=== PATIENT | male | born 1970 | race Asian ===

== ENCOUNTER 2018-07-10 14:38 | Observation (INO) | payer BC ==
[~2018-07-10] VITALS: Ht 165.1 cm; Wt 70.2 kg
[~2018-07-10 14:38] MED LIST: ALBU8.5H8 IH; ALPR0.5T PO
[2018-07-10 14:41] VITALS: Ht 165.1 cm; Wt 70.2 kg
[2018-07-10] MEDS ORDERED: KETOROLAC 15 MG INJ IV STA (15:04)
[2018-07-10] MEDS ORDERED: LIDOCAINE/MYLANTA 40 ML BTL PO STA (15:04)
[2018-07-10] MEDS ORDERED: SOD CHLORIDE 0.9% 500 ML IV STA (15:04)
[2018-07-10] MEDS ORDERED: ONDANSETRON 4 MG INJ IV STA (15:04)
[2018-07-10] MEDS ORDERED: BELLADONNA/PHENOBARBITAL TAB PO STA (15:04)
--- NOTE | 2018-07-10 15:14 | ERD ---
ER Documentation Chief Complaint Chief Complaint epigastric pain radiating to back, had stent placed 6 months ago HPI 48-year-old man complains of left chest discomfort intermittent beginning this morning. He states the discomfort lasts for a few minutes and is similar to previous episode he had in the summer at which time he was diagnosed with a myocardial infarction and had to be rushed to the cardiac [employer]. Patient did receive a drug-eluting RCA stent. He did use a baby dose of aspirin this morning and also complains of mild dizziness, mild shortness of breath, some nausea. Patient also has epigastric burning and bloating with belching and states those symptoms are occurring concurrently and feel like his indigest ion/gastritis. He denies fevers or chills, no cough, no calf or leg swelling, no hematemesis, no blood per rectum or melena. ROS All systems reviewed and are negative except as per history of present illness. Medications Home Meds Reported Medications Famotidine* (Famotidine*) 10 Mg Tablet, 10 MG PO BID, #60 TAB 07/10/18 Aspirin* (Aspirin* EC) 81 Mg Tablet.dr, 81 MG PO DAILY, TAB 07/10/18 Clopidogrel Bisulfate* (Clopidogrel Bisulfate*) 75 Mg Tablet, 75 MG PO DAILY, #30 TAB 07/10/18 Carvedilol* (Carvedilol*) 3.125 Mg Tablet, 3.125 MG PO BID, #60 TAB 07/10/18 Atorvastatin* (Atorvastatin*) 80 Mg Tablet, 80 MG PO QHS, #30 TAB 07/10/18 Lisinopril* (Lisinopril*) 5 Mg Tablet, 5 MG PO DAILY, #30 TAB 07/10/18 Discontinued Reported Medications Alprazolam* (Xanax*) 0.5 Mg Tab, 0.5 MG PO PRN 12/11/11 Albuterol Sulfate* (Proair HFA*) 8.5 Gm Hfa.aer.ad, 8.5 GM IH PRN 12/11/11 Allergies Allergies: Coded Allergies: shrimp (Verified Allergy, Severe, 07/10/18) Uncoded Allergies: PENICILLIN (Allergy, Unknown, 07/10/18) PMhx/Soc Hypertension, hypercholesterolemia, CAD, status post ME and stent placement, gastritis History of Surgery: No Anesthesia Reaction: No Hx Neurological Disorder: No Hx Respiratory Disorders: Yes (ASTHMA) Hx Cardiac Disorders: No Hx Psychiatric Problems: Yes (ANXIETY) Hx Miscellaneous Medical Probl: No Hx Alcohol Use: No Hx Substance Use: No Hx Tobacco Use: No FmHx Family History: No diabetes Physical Exam Vitals Vital Signs Date Temp Pulse Resp B/P (MAP) Pulse Ox O2 O2 Flow FiO2 Time Delivery Rate 07/10/18 61 18 122/78 98 Room Air 17:21 (93) 07/10/18 66 18 140/80 100 Room Air 15:15 (100) 07/10/18 98.1 82 18 144/87 95 14:41 (106) Physical Exam GENERAL: Well-developed, well-nourished, well-hydrated, in no apparent distress, looks nontoxic in appearance HEENT: Moist mucous membranes, pink conjunctiva, no cervical spine tenderness or step-off deformities, no goiter, no jaundice or icterus, extraocular movements intact without pain. No submandibular induration, and no pharyngeal erythema NEURO: Alert and oriented 3, cranial nerves II through XII intact bilaterally, pupils equal round reactive to light, no focal deficits or facial asymmetry, sensation intact distally Strength 5/5 in upper and lower extremities bilaterally CARDIAC: Regular rate and rhythm, no murmurs rubs or gallops LUNGS: Clear bilaterally no wheezing crackles or stridor ABDOMEN: Soft nontender, no guarding, no rigidity, no rebound, no psoas sign no obturator sign. Normoactive bowel sounds SKIN: Warm and dry to touch, no abrasions, contusions, or hematomas, no lacerat ions, no ecchymosis, no target lesions, and without ulcers EXTREMITIES: No clubbing cyanosis or edema, calves are bilaterally symmetrical, no Homans sign, no popliteal cord sign. Distal pulses equal and bilateral PSYCH: Normal affect without agitation or irritability Result Diagram: 07/10/18 1520 07/10/18 1520 Results 24 hrs Laboratory Tests Test 07/10/18 15:20 White Blood Count 5.9 10^3/ul Red Blood Count 4.92 10^6/ul Hemoglobin 14.5 g/dl Hematocrit 43.0 % Mean Corpuscular Volume 87.4 fl Mean Corpuscular Hemoglobin 29.5 pg Mean Corpuscular Hemoglobin Concent 33.7 g/dl Red Cell Distribution Width 12.6 % Platelet Count 213 10^3/UL Mean Platelet Volume 8.8 fl Immature Granulocytes % 0.300 % Neutrophils % 65.3 % Lymphocytes % 23.9 % Monocytes % 7.6 % Eosinophils % 2.4 % Basophils % 0.5 % Nucleated Red Blood Cells % 0.0 /100WBC Immature Granulocytes # 0.020 10^3/ul Neutrophils # 3.8 10^3/ul Lymphocytes # 1.4 10^3/ul Monocytes # 0.5 10^3/ul Eosinophils # 0.1 10^3/ul Basophils # 0.0 10^3/ul Nucleated Red Blood Cells # 0.0 10^3/ul Prothrombin Time 11.8 Sec Prothrombin Time Ratio 0.9 INR International Normalized Ratio 0.86 Activated Partial Thromboplast Time 30.0 Sec Sodium Level 137 mmol/L Potassium Level 3.8 mmol/L Chloride Level 101 mmol/L Carbon Dioxide Level 27 mmol/L Anion Gap 9 Blood Urea Nitrogen 19 mg/dl Creatinine 1.01 mg/dl Est Glomerular Filtrat Rate mL/min > 60 mL/min Glucose Level 101 mg/dl Calcium Level 10.0 mg/dl Total Bilirubin 0.3 mg/dl Direct Bilirubin 0.00 mg/dl Indirect Bilirubin 0.3 mg/dl Aspartate Amino Transf (AST/SGOT) 43 IU/L Alanine Aminotransferase (ALT/SGPT) 60 IU/L Alkaline Phosphatase 57 IU/L Creatine Kinase 152 IU/L Creatine Kinase Index 0.7 Creatinine Kinase MB (Mass) 1.07 ng/ml Troponin I < 0.012 ng/ml Total Protein 8.1 g/dl Albumin 4.8 g/dl Globulin 3.30 g/dl Albumin/Globulin Ratio 1.45 Lipase 73 U/L Current Medications Medications Dose Sig/Ishaan Start Time Status Last (Trade) Ordered Route PRN Stop Time Admin Dose Reason Admin Aspirin 324 mg ONCE ONCE 07/10/18 DC 07/10/18 (Aspirin) PO 15:30 15:31 07/10/18 15:31 Sodium 500 ml @ Q1H STAT 07/10/18 DC 07/10/18 Chloride 500 mls/hr IV 15:04 15:32 07/10/18 16:03 Ondansetron 4 mg ONCE STAT 07/10/18 DC 07/10/18 HCl (Zofran IV 15:04 15:31 Inj) 07/10/18 15:06 40 ml ONCE STAT 07/10/18 DC 07/10/18 Miscellaneous PO 15:04 15:31 Medication 07/10/18 15:06 (Gi Cocktail (2)) Belladonna/ 2 tab ONCE STAT 07/10/18 DC 07/10/18 Phenobarbital PO 15:04 15:31 () 07/10/18 15:06 Ketorolac 15 mg ONCE STAT 07/10/18 DC 07/10/18 Tromethamine IV 15:04 15:31 (Toradol) 07/10/18 15:06 IV Flush 3 ml PER 07/10/18 (NS 3 ml) PROTOCOL IV 17:30 Ondansetron 4 mg Q6H PRN 07/10/18 HCl (Zofran IV NAUSEA 17:30 Inj) AND/OR VOMITING 1 tab Q5M PRN 07/10/18 Nitroglycerin SL CHEST 17:30 PAIN (Nitroglyceri n (Sl Tab) 0.4 Mg) 650 mg Q6H PRN 07/10/18 Acetaminophen PO PAIN 17:30 (Tylenol LEVEL 1-3 OR Tab) FEVER Morphine 2 mg Q4H PRN 07/10/18 Sulfate IV PAIN 17:30 (morphine) LEVEL 7-10 Docusate 100 mg Q12H PRN 07/10/18 Sodium PO 17:30 (Colace) CONSTIPATION Magnesium 30 ml DAILY PRN 07/10/18 Hydroxide PO 17:30 (Milk Of Mag) CONSTIPATION Bisacodyl 10 mg DAILY PRN 07/10/18 (Dulcolax [place] 17:30 Supp) CONSTIPATION Famotidine 20 mg Q12 PO 07/10/18 (Pepcid) 21:00 Aspirin 81 mg DAILY PO 07/11/18 (Halfprin) 09:00 80 mg QHS PO 07/10/18 Atorvastatin 21:00 Calcium (Lipitor) Carvedilol 3.125 mg BID PO 07/10/18 (Coreg) 21:00 Clopidogrel 75 mg DAILY PO 07/11/18 Bisulfate 09:00 (plaVIX) Lisinopril 5 mg DAILY PO 07/11/18 (Zestril) 09:00 Procedures/[facility] IV line was established patient was placed on cardiac cath technologist rhythm strip revealed a sinus rhythm at about 70 bpm with upright P and T waves. Patient was afebrile EKG performed, read by me revealed a normal sinus rhythm at 60 bpm, normal axis, narrow QRS complex, no concerning ST elevations or depressions noted Chest X-ray 1V Interpreted by me: Soft Tissue: No acute abnormalities Bones: No acute abnormalities Mediastinum/Cardiac Silhouette/Lungs: No acute abnormalities I administered 500 cc normal saline IV, Toradol 15 mg IV x1, GI cocktail, Zofran 4 mg p.o. and aspirin 324 mg p.o. for cardioprotective measures. CBC and electrolytes were normal, liver function tests were normal, troponin was negative Patient's chest pain has improved although given his concerning past medical history and his symptoms today he will be admitted to telemetry for continued medical management and cardiology consultation Departure Diagnosis: Primary Impression: Epigastric pain Additional Impression: Chest pain Chest pain type: unspecified Qualified Codes: R07.9 - Chest pain, unspecified Condition: KESHA Rider MD Jul 10, 2018 15:14
[2018-07-10] MEDS ORDERED: LISI-313 PO (15:22)
[2018-07-10] MEDS ORDERED: ATOR-2 PO (15:24)
[2018-07-10] MEDS ORDERED: CLOP75TA19 PO (15:25)
[2018-07-10] MEDS ORDERED: ASPI-817 PO (15:25)
[2018-07-10] MEDS ORDERED: CARV3.1260 PO (15:25)
[2018-07-10] MEDS ORDERED: FAMO10TA84 PO (15:26)
[2018-07-10] MEDS ORDERED: ASPIRIN 81 MG TAB PO ONE (15:30)
[2018-07-10] MEDS ORDERED: morphine 2 MG INJ IV PRN (17:30)
[2018-07-10] MEDS ORDERED: ONDANSETRON 4 MG INJ IV PRN (17:30)
[2018-07-10] MEDS ORDERED: NACL 0.9% 3 ML SYG IV SCH (17:30)
[2018-07-10] MEDS ORDERED: BISACODYL 10 MG SUPP PR PRN (17:30)
[2018-07-10] MEDS ORDERED: DOCUSATE SODIUM 100 MG CAP PO PRN (17:30)
[2018-07-10] MEDS ORDERED: NITROGLYCERIN (SL) 0.4 MG TAB SL PRN (17:30)
[2018-07-10] MEDS ORDERED: MAGNESIUM HYDROXIDE 30ML CUP PO PRN (17:30)
[2018-07-10] MEDS ORDERED: ACETAMINOPHEN 325 MG TAB PO PRN (17:30)
--- NOTE | 2018-07-10 17:48 | HP ---
Date/Time of Note Date/Time of Note DATE: 07/10/18 TIME: 17:33 Assessment/Plan VTE Prophylaxis SCD applied (from Nsg): Yes Pharmacological prophylaxis: NA/contraindicated Pharm contraindication: low risk/ambulating Lines/Catheters IV Catheter Type (from Nrsg): Saline Lock Assessment/Plan Assessment/Plan 48-year-old male with: 1. Chest pain, also epigastric pain, seems to be radiating to the left side of his back across from his left chest, patient does have a history of coronary artery disease with recent episode of NSTEMI and RCA stenting. He is being admitted to telemetry on observation for rule out acute coronary syndrome, he will be placed on n.p.o. after midnight with plans for a Lexiscan in a.m. if his enzymes remain negative. Continue his current outpatient medication including antiplatelets, beta blockers, JOE inhibitors and statins. Cardiology consult with Dr. Lay 2. Epigastric burning pain with occasional stabbing pain, but this could be consistent with GERD versus PUD, but patient does have a history of GERD, will continue with Pepcid which will be dosed twice daily. Abdominal ultrasound pending. Lipase within normal. 3. Coronary artery disease: Continue home medications 4. Hypertension: Continue home regimen 5. Hyperlipidemia: Continue current statins, check fasting panel in a.m. 6. GERD: Continue H2 blockers. 7. ? Diabetes mellitus, the patient reports he has borderline diabetes mellitus and diet controlled currently. Check A1c in a.m. Prophylaxis: SCDs for DVT prophylaxis, Pepcid for GI prophylaxis. Disposition: Admit to telemetry, observation, rule out ACS. Result Diagram: 07/10/18 1520 07/10/18 1520 Results 24hrs Laboratory Tests Test 07/10/18 15:20 White Blood Count 5.9 Red Blood Count 4.92 Hemoglobin 14.5 Hematocrit 43.0 Mean Corpuscular Volume 87.4 Mean Corpuscular Hemoglobin 29.5 Mean Corpuscular Hemoglobin Concent 33.7 Red Cell Distribution Width 12.6 Platelet Count 213 Mean Platelet Volume 8.8 Immature Granulocytes % 0.300 Neutrophils % 65.3 Lymphocytes % 23.9 Monocytes % 7.6 Eosinophils % 2.4 Basophils % 0.5 Nucleated Red Blood Cells % 0.0 Immature Granulocytes # 0.020 Neutrophils # 3.8 Lymphocytes # 1.4 Monocytes # 0.5 Eosinophils # 0.1 Basophils # 0.0 Nucleated Red Blood Cells # 0.0 Prothrombin Time 11.8 L Prothrombin Time Ratio 0.9 INR International Normalized Ratio 0.86 Activated Partial Thromboplast Time 30.0 Sodium Level 137 Potassium Level 3.8 Chloride Level 101 Carbon Dioxide Level 27 Anion Gap 9 Blood Urea Nitrogen 19 Creatinine 1.01 Est Glomerular Filtrat Rate mL/min > 60 Glucose Level 101 Calcium Level 10.0 Total Bilirubin 0.3 Direct Bilirubin 0.00 Indirect Bilirubin 0.3 Aspartate Amino Transf (AST/SGOT) 43 Alanine Aminotransferase (ALT/SGPT) 60 Alkaline Phosphatase 57 Creatine Kinase 152 Creatine Kinase Index 0.7 Creatinine Kinase MB (Mass) 1.07 Troponin I < 0.012 Total Protein 8.1 Albumin 4.8 Globulin 3.30 H Albumin/Globulin Ratio 1.45 Lipase 73 HPI/ROS Admit Date/Time Admit Date/Time Hx of Present Illness Chief complaint: Epigastric pain, chest pain History of presenting illness: This is a 48-year-old male with coronary artery disease, status post RCA stenting in December 2017 after episode of NSTEMI at [facility] who presented to the emergency department with complaint of epigastric pain that now has progressed to left-sided chest pain. Patient reports that he is been in his usual state of health until this morning, he was at work here at [employer] when he started having burning epigastric pain and sharp at times, he thought he was gas and or GERD, he took Pepcid which is listed as his medication, the pain was not resolving and he started having also mild dull-like pain on his left chest radiating to his left back. Patient reports that he actually went up and down the stairs to see if his pain was not worsened and it did not, he did feel some dizziness and mild shortness of breath but no diaphoresis, no nausea or vomiting. Since the dull achy left-sided chest pain was persisting and he reports that was very similar to the pain he had when he had his acute coronary syndrome in December, he decided to come to the emergency department for evaluation. EKG is within normal, first set of cardiac enzymes negative, patient is hemodynamically stable. He is being admitted to telemetry on observation with possible stress test in a.m. if cardiac enzymes remain negative. There is a possibility that his current symptoms are of gastrointestinal etiology, ultrasound of the upper abdomen is ordered. Patient is placed on H2 blockers twice daily. ROS Constitutional: no complaints Eyes: no complaints ENT: no complaints Respiratory: shortness of breath (Mild with episode of chest discomfort) Cardiovascular: chest pain, lightheadedness Gastrointestinal: pain (Epigastric burning pain) Genitourinary: no complaints Musculoskeletal: no complaints Skin: no complaints Neurologic: no complaints Endocrine: no complaints Lymphatic: no complaints Psychological: no complaints, nl mood/affect Immunologic: no complaints PMH/Family/Social Past Medical History Coronary artery disease, status post NSTEMI and RCA stenting at [facility] in December 2017 Hypertension Hyperlipidemia GERD Borderline diabetes mellitus, diet controlled according to patient. Medications Current Medications IV Flush (NS 3 ml) 3 ml PER PROTOCOL IV ; Start 07/10/18 at 17:30; Status UNV Ondansetron HCl (Zofran Inj) 4 mg Q6H PRN IV NAUSEA AND/OR VOMITING; Start 07/10/18 at 17:30; Status UNV Nitroglycerin (Nitroglycerin (Sl Tab) 0.4 Mg) 1 tab Q5M PRN SL CHEST PAIN; Start 07/10/18 at 17:30; Status UNV Acetaminophen (Tylenol Tab) 650 mg Q6H PRN PO PAIN LEVEL 1-3 OR FEVER; Start 07/10/18 at 17:30; Status UNV Morphine Sulfate (morphine) 2 mg Q4H PRN IV PAIN LEVEL 7-10; Start 07/10/18 at 17:30; Status UNV Docusate Sodium (Colace) 100 mg Q12H PRN PO CONSTIPATION; Start 07/10/18 at 17:30; Status UNV Magnesium Hydroxide (Milk Of Mag) 30 ml DAILY PRN PO CONSTIPATION; Start 07/10/18 at 17:30; Status UNV Bisacodyl (Dulcolax Supp) 10 mg DAILY PRN [place] CONSTIPATION; Start 07/10/18 at 17:30; Status UNV Famotidine (Pepcid) 20 mg Q12 PO ; Start 07/10/18 at 21:00; Status UNV Aspirin (Halfprin) 81 mg DAILY PO ; Start 07/11/18 at 09:00; Status UNV Atorvastatin Calcium (Lipitor) 80 mg QHS PO ; Start 07/10/18 at 21:00; Status UNV Carvedilol (Coreg) 3.125 mg BID PO ; Start 07/10/18 at 21:00; Status UNV Clopidogrel Bisulfate (plaVIX) 75 mg DAILY PO ; Start 07/11/18 at 09:00; Status UNV Lisinopril (Zestril) 5 mg DAILY PO ; Start 07/11/18 at 09:00; Status UNV Coded Allergies: shrimp (Verified Allergy, Severe, 07/10/18) Penicillins (Verified Allergy, Unknown, 07/10/18) Past Surgical History Status post cardiac angiogram and RCA stenting December 2017 Family History Significant Family History: no pertinent family hx Social History Alcohol Use: none Smoking Status: Never smoker Drug Use: none Exam/Review of Systems Vital Signs Vitals Vital Signs Date Temp Pulse Resp B/P (MAP) Pulse Ox O2 O2 Flow FiO2 Time Delivery Rate 07/10/18 61 18 122/78 98 Room Air 17:21 (93) 07/10/18 98.1 14:41 Exam Constitutional: alert, oriented, well developed Respiratory: clear to auscultation, normal air movement Cardiovascular: regular rate and rhythm Gastrointestinal: soft, non-tender Musculoskeletal: nl extremities to inspection, nl gait and stance Extremities: normal pulses, other (No edema, clubbing or cyanosis.) Neurological: POOL FINISHER II-XII intact, nl mental status, nl speech, nl strength Additional Comments PROCEDURE: XR Chest AP portable CLINICAL INDICATION: Abdominal pain TECHNIQUE: An AP portable radiograph of the chest was submitted. COMPARISON: 07/06/2014 FINDINGS: Support Hardware: None Cardiovascular: The cardiovascular silhouette appears unremarkable. Lung Vazquez: The lung vazquez appear clear with no nodule, alveolar infiltrate, or interstitial prominence evident. Pleural Spaces: No pneumothorax or pleural effusion is identified. Osseous Structures: The osseous structures appear intact. Soft Tissues: The soft tissues appear unremarkable. IMPRESSION: Stable and unremarkable portable chest. Physician Tina Date Time Electronically viewed and signed by John Rodriguez Physician on 07/10/2018 15:19 EKG: Normal sinus rhythm, no acute ST or T wave abnormalities. Normal EKG. KULDEEP DAMON Jul 10, 2018 17:46
[2018-07-10 20:48] VITALS: PULSE 60
[2018-07-10] MEDS ORDERED: ATORVASTATIN 80 MG TAB PO SCH (21:00)
[2018-07-10] MEDS: FAMOTIDINE 20 MG TAB PO SCH (21:58)
[2018-07-10 23:13] VITALS: BP 111/60; PULSE 59; RESP 18
[2018-07-11] VITALS: PULSE 52
[2018-07-11 03:40] VITALS: BP 118/66; PULSE 55; RESP 18
[2018-07-11 04:00] VITALS: PULSE 52; PULSE 63
[2018-07-11 07:30] VITALS: BP 108/60; PULSE 64; RESP 18
[2018-07-11 08:00] VITALS: PULSE 66
[2018-07-11] MEDS ORDERED: LISINOPRIL 5 MG TAB PO SCH (09:00)
[2018-07-11] MEDS ORDERED: ASPIRIN (EC) 81 MG TAB PO SCH (09:00)
[2018-07-11] MEDS ORDERED: CLOPIDOGREL 75 MG TAB PO SCH (09:00)
[2018-07-11] MEDS ORDERED: REGADENOSON 0.4 MG/5 ML SYG ONE (10:03)
[2018-07-11] MEDS: FAMOTIDINE 20 MG TAB PO SCH (11:48)
[2018-07-11 12:00] VITALS: PULSE 99
--- NOTE | 2018-07-11 12:21 | CONS ---
Date/Time of Note Date/Time of Note DATE: 07/11/18 TIME: 12:19 Assessment/Plan Assessment/Plan Assessment/Plan Abdominal pain and possible chest pain CAD with history of PCI proximally 6 months ago Hypertension Dyslipidemia -Patient with symptoms of indigestion and chest discomfort which she feels is similar to when he had a stent placed 6 months ago. ECG with no significant ischemic abnormalities, serial cardiac enzymes are unremarkable. Patient planned for nuclear cardiac perfusion study today. Result Diagram: 07/11/18 0320 07/11/18 0320 Results 24hrs Laboratory Tests Test 07/10/18 15:20 07/10/18 21:56 07/11/18 03:20 White Blood Count 5.9 4.9 Red Blood Count 4.92 4.51 L Hemoglobin 14.5 13.7 L Hematocrit 43.0 40.5 L Mean Corpuscular Volume 87.4 89.8 Mean Corpuscular Hemoglobin 29.5 30.4 Mean Corpuscular Hemoglobin Concent 33.7 33.8 Red Cell Distribution Width 12.6 12.4 Platelet Count 213 199 Mean Platelet Volume 8.8 9.0 Immature Granulocytes % 0.300 0.400 Neutrophils % 65.3 54.8 Lymphocytes % 23.9 31.6 Monocytes % 7.6 10.3 Eosinophils % 2.4 2.1 Basophils % 0.5 0.8 Nucleated Red Blood Cells % 0.0 0.0 Immature Granulocytes # 0.020 0.020 Neutrophils # 3.8 2.7 Lymphocytes # 1.4 1.5 Monocytes # 0.5 0.5 Eosinophils # 0.1 0.1 Basophils # 0.0 0.0 Nucleated Red Blood Cells # 0.0 0.0 Prothrombin Time 11.8 L Prothrombin Time Ratio 0.9 INR International Normalized Ratio 0.86 Activated Partial Thromboplast Time 30.0 Sodium Level 137 139 Potassium Level 3.8 4.2 Chloride Level 101 100 Carbon Dioxide Level 27 31 Anion Gap 9 8 Blood Urea Nitrogen 19 23 H Creatinine 1.01 1.25 H Est Glomerular Filtrat Rate mL/min > 60 > 60 Glucose Level 101 100 Calcium Level 10.0 9.2 Total Bilirubin 0.3 0.2 Direct Bilirubin 0.00 0.00 Indirect Bilirubin 0.3 0.2 Aspartate Amino Transf (AST/SGOT) 43 34 Alanine Aminotransferase (ALT/SGPT) 60 53 Alkaline Phosphatase 57 41 L Creatine Kinase 152 130 164 Creatine Kinase Index 0.7 0.6 0.5 Creatinine Kinase MB (Mass) 1.07 0.82 0.74 Troponin I < 0.012 < 0.012 < 0.012 Total Protein 8.1 7.0 # Albumin 4.8 4.1 Globulin 3.30 H 2.90 Albumin/Globulin Ratio 1.45 1.41 Lipase 73 Hemoglobin A1c 5.7 Magnesium Level 2.4 Triglycerides Level 98 Cholesterol Level 131 LDL Cholesterol, Calculated 61 HDL Cholesterol 50 Cholesterol/HDL Ratio 2.6 Consultation Date/Type/Reason Admit Date/Time Type of Consult cv Reason for Consultation Chest pain Hx of Present Illness This is a 48-year-old male with past medical history of coronary disease with PCI proxy 6 months ago who presents with indigestions sensation and possible chest pain. Patient with symptoms of burning in his abdomen going up to his chest. This felt similar to when he had his myocardial infarction approximate 6 months ago. Symptoms currently began after eating. With exertion symptoms were not worsened or improved and slowly dissipated. Because he was concerned, he came to the ER for further evaluation and care. Denies any symptoms currently. He has been compliant with his antiplatelet therapy. 12 point review of systems was performed with all pertinent positives and negatives mentioned above and all else is negative Past Medical History Medical History: coronary artery disease, hypertension Medications Current Medications IV Flush (NS 3 ml) 3 ml PER PROTOCOL IV ; Start 07/10/18 at 17:30 Ondansetron HCl (Zofran Inj) 4 mg Q6H PRN IV NAUSEA AND/OR VOMITING; Start 07/10/18 at 17:30 Nitroglycerin (Nitroglycerin (Sl Tab) 0.4 Mg) 1 tab Q5M PRN SL CHEST PAIN; Start 07/10/18 at 17:30 Acetaminophen (Tylenol Tab) 650 mg Q6H PRN PO PAIN LEVEL 1-3 OR FEVER; Start 07/10/18 at 17:30 Morphine Sulfate (morphine) 2 mg Q4H PRN IV PAIN LEVEL 7-10; Start 07/10/18 at 17:30 Docusate Sodium (Colace) 100 mg Q12H PRN PO CONSTIPATION; Start 07/10/18 at 17:30 Magnesium Hydroxide (Milk Of Mag) 30 ml DAILY PRN PO CONSTIPATION; Start 07/10/18 at 17:30 Bisacodyl (Dulcolax Supp) 10 mg DAILY PRN [place] CONSTIPATION; Start 07/10/18 at 17:30 Famotidine (Pepcid) 20 mg Q12 PO Last administered on 07/11/18at 11:48; Admin Dose 20 MG; Start 07/10/18 at 21:00 Aspirin (Halfprin) 81 mg DAILY PO Last administered on 07/11/18at 11:48; Admin Dose 81 MG; Start 07/11/18 at 09:00 Atorvastatin Calcium (Lipitor) 80 mg QHS PO ; Start 07/10/18 at 21:00 Carvedilol (Coreg) 3.125 mg BID PO Last administered on 07/11/18at 11:49; Admin Dose 3.125 MG; Start 07/10/18 at 21:00 Clopidogrel Bisulfate (plaVIX) 75 mg DAILY PO Last administered on 07/11/18 11:48; Admin Dose 75 MG; Start 07/11/18 at 09:00 Lisinopril (Zestril) 5 mg DAILY PO Last administered on 07/11/18 11:49; Admin Dose 5 MG; Start 07/11/18 at 09:00 Allergies: Coded Allergies: shrimp (Verified Allergy, Severe, 07/10/18) Penicillins (Verified Allergy, Unknown, 07/10/18) Past Surgical History Past Surgical Hx: angioplasty Social History Alcohol Use: none Smoking Status: Former smoker Drug Use: none Exam/Review of Systems Vital Signs Vitals Vital Signs Date Temp Pulse Resp B/P (MAP) Pulse Ox O2 O2 Flow FiO2 Time Delivery Rate 07/11/18 66 08:00 07/11/18 98.1 18 108/60 97 Room Air 07:30 (76) Intake and Output 07/10/18 07/10/18 07/11/18 1515:00 23:00 07:00 IntakeIntake Total 670 ml BalanceBalance 670 ml Exam No apparent distress Constitutional: alert, oriented Head: normocephalic Respiratory: clear to auscultation, normal air movement Cardiovascular: regular rate and rhythm, other (S1-S2 heard) Gastrointestinal: soft, non-tender, bowel sounds Extremities: other (No edema) Medications Medications Current Medications IV Flush (NS 3 ml) 3 ml PER PROTOCOL IV ; Start 07/10/18 at 17:30 Ondansetron HCl (Zofran Inj) 4 mg Q6H PRN IV NAUSEA AND/OR VOMITING; Start 07/10/18 at 17:30 Nitroglycerin (Nitroglycerin (Sl Tab) 0.4 Mg) 1 tab Q5M PRN SL CHEST PAIN; Start 07/10/18 at 17:30 Acetaminophen (Tylenol Tab) 650 mg Q6H PRN PO PAIN LEVEL 1-3 OR FEVER; Start 07/10/18 at 17:30 Morphine Sulfate (morphine) 2 mg Q4H PRN IV PAIN LEVEL 7-10; Start 07/10/18 at 17:30 Docusate Sodium (Colace) 100 mg Q12H PRN PO CONSTIPATION; Start 07/10/18 at 17:30 Magnesium Hydroxide (Milk Of Mag) 30 ml DAILY PRN PO CONSTIPATION; Start 07/10/18 at 17:30 Bisacodyl (Dulcolax Supp) 10 mg DAILY PRN MT CONSTIPATION; Start 07/10/18 at 17:30 Famotidine (Pepcid) 20 mg Q12 PO Last administered on 07/11/18at 11:48; Admin Dose 20 MG; Start 07/10/18 at 21:00 Aspirin (Halfprin) 81 mg DAILY PO Last administered on 07/11/18 11:48; Admin Dose 81 MG; Start 07/11/18 at 09:00 Atorvastatin Calcium (Lipitor) 80 mg QHS PO ; Start 07/10/18 at 21:00 Carvedilol (Coreg) 3.125 mg BID PO Last administered on 07/11/18at 11:49; Admin Dose 3.125 MG; Start 07/10/18 at 21:00 Clopidogrel Bisulfate (plaVIX) 75 mg DAILY PO Last administered on 07/11/18at 11:48; Admin Dose 75 MG; Start 07/11/18 at 09:00 Lisinopril (Zestril) 5 mg DAILY PO Last administered on 07/11/18 11:49; Admin Dose 5 MG; Start 07/11/18 at 09:00 Imaging Imaging ECG sinus rhythm, normal QRS duration, no significant ischemic ST abnormalities Derick Lay DO Jul 11, 2018 12:21
--- NOTE | 2018-07-11 12:51 | RADRPT ---
Echocardiogram Report Patient Name: DERICK MANCILLA Gender: Male Date: 1970 Study Date: 11-Jul-2018 Marble Machine Tender: Izabela [facility] Location: [address] Ref. Physician: PHILIPP DAMON Quality: Adequate Procedures: Transthoracic echocardiogram with complete 2D, M-Mode, and doppler examination. Indications: Chest Pain. 2D/M Mode Doppler Measurement Value Normal Ranges Measurement Value Normal Ranges LVIDd 2D 4.2 3.5 - 5.6 cm AV Peak Donaldo 1.3 m/sec LVIDs 2D 2.6 2.1 - 4.1 cm AV Peak PG 6.0 mmHg FS 2D 38.7 % LVOT Peak Donaldo 0.8 m/sec LVPWd 2D 0.9 0.6 - 1.1 cm LVOT Peak PG 3.0 mmHg IVSd 2D 1.2 0.6 - 1.1 cm MV E Peak Donaldo 0.9 m/sec IVS/LVPW 2D 1.3 MV A Peak Donaldo 0.7 m/sec AoR Diam 2D 2.4 2.0 - 3.7 cm MV E/A 1.4 LA/Ao 2D 1 0 - 1 MV Decel Time 183 msec EDV 2D 76.2 cm3 MV E/A 1.4 ESV 2D 17.6 cm3 RA Pressure 3.0 LA Dimen 2D 3.1 2.3 - 4.0 cm Findings Left Ventricle: Normal left ventricular systolic function. Normal left ventricular cavity size. Sigmoid septum. Ejection fraction is visually estimated at 65 %. Right Ventricle: Normal right ventricular size. Normal right ventricular systolic function. Left Atrium: The left atrium is normal in size. Right Atrium: The right atrium is normal in size. Mitral Valve: Mild mitral leaflet calcification. Mild mitral annular calcification. Trace mitral regurgitation. Aortic Valve: No significant aortic stenosis or insufficiency. Aortic cusps appear mildly calcified. Trace aortic valve regurgitation. Tricuspid Valve: Normal appearance and function of the tricuspid valve with trace physiologic regurgitation. Pulmonic Valve: Pulmonic valve not well visualized. There is trace pulmonic regurgitation. Pericardium: Normal pericardium with no significant pericardial effusion. Aorta: Normal aortic root. IVC: Normal size and normal respiratory collapse consistent with normal right atrial pressure. Conclusions Normal left ventricular systolic function. Normal left ventricular cavity size. Sigmoid septum. Ejection fraction is visually estimated at 65 %. Normal right ventricular size. Normal right ventricular systolic function. The left atrium is normal in size. The right atrium is normal in size. No significant valvular stenosis or regurgitation seen. Normal pericardium with no significant pericardial effusion. Electronically Signed By: Derick Lay 11-Jul-2018 12:51:19 -0800 Patient Name: DERICK MANCILLA Study Date: 11-Jul-2018 [id number]
--- NOTE | 2018-07-11 13:13 | PN ---
Date/Time of Note Date/Time of Note DATE: 07/11/18 TIME: 13:09 Assessment/Plan VTE Prophylaxis Risk score (from Ns)>0 risk: 21 SCD applied (from [facility]): Yes Pharmacological prophylaxis: NA/contraindicated Pharm contraindication: low risk/ambulating Lines/Catheters IV Catheter Type (from [facility]): Saline Lock Assessment/Plan Assessment/Plan 48-year-old male with: 1. Atypical chest pain, also epigastric pain, seems to be radiating to the left side of his back across from his left chest, patient does have a history of coronary artery disease with recent episode of NSTEMI and RCA stenting. He was ruled out for acute coronary syndrome. Stress test came back negative for acute ischemia. Patient is advised to increase his Pepcid to twice daily 20 mg p.o. as he is symptoms may be secondary to GERD versus PUD. 2. Epigastric burning pain with occasional stabbing pain, but this could be consistent with GERD versus PUD, but patient does have a history of GERD. Continue current dosing of Pepcid as an outpatient. Abdominal ultrasound within normal limits. Lipase within normal. 3. Coronary artery disease: Continue home medications 4. Hypertension: Continue home regimen 5. Hyperlipidemia: Continue current statins, check fasting panel in a.m. 6. GERD: Continue H2 blockers, Pepcid 20 mg p.o. twice daily. 7. ? Diabetes mellitus, the patient reports he has borderline diabetes mellitus and diet controlled currently. A1c 5.7 Prophylaxis: SCDs for DVT prophylaxis, Pepcid for GI prophylaxis. Disposition: Discharge home, follow-up with PCP within 1 week, follow-up with cardiology within 1-2 weeks or as previously scheduled. Result Diagram: 07/11/18 0320 07/11/18 0320 Results 24hrs Laboratory Tests Test 07/10/18 15:20 07/10/18 21:56 07/11/18 03:20 White Blood Count 5.9 4.9 Red Blood Count 4.92 4.51 L Hemoglobin 14.5 13.7 L Hematocrit 43.0 40.5 L Mean Corpuscular Volume 87.4 89.8 Mean Corpuscular Hemoglobin 29.5 30.4 Mean Corpuscular Hemoglobin Concent 33.7 33.8 Red Cell Distribution Width 12.6 12.4 Platelet Count 213 199 Mean Platelet Volume 8.8 9.0 Immature Granulocytes % 0.300 0.400 Neutrophils % 65.3 54.8 Lymphocytes % 23.9 31.6 Monocytes % 7.6 10.3 Eosinophils % 2.4 2.1 Basophils % 0.5 0.8 Nucleated Red Blood Cells % 0.0 0.0 Immature Granulocytes # 0.020 0.020 Neutrophils # 3.8 2.7 Lymphocytes # 1.4 1.5 Monocytes # 0.5 0.5 Eosinophils # 0.1 0.1 Basophils # 0.0 0.0 Nucleated Red Blood Cells # 0.0 0.0 Prothrombin Time 11.8 L Prothrombin Time Ratio 0.9 INR International Normalized Ratio 0.86 Activated Partial Thromboplast Time 30.0 Sodium Level 137 139 Potassium Level 3.8 4.2 Chloride Level 101 100 Carbon Dioxide Level 27 31 Anion Gap 9 8 Blood Urea Nitrogen 19 23 H Creatinine 1.01 1.25 H Est Glomerular Filtrat Rate mL/min > 60 > 60 Glucose Level 101 100 Calcium Level 10.0 9.2 Total Bilirubin 0.3 0.2 Direct Bilirubin 0.00 0.00 Indirect Bilirubin 0.3 0.2 Aspartate Amino Transf (AST/SGOT) 43 34 Alanine Aminotransferase (ALT/SGPT) 60 53 Alkaline Phosphatase 57 41 L Creatine Kinase 152 130 164 Creatine Kinase Index 0.7 0.6 0.5 Creatinine Kinase MB (Mass) 1.07 0.82 0.74 Troponin I < 0.012 < 0.012 < 0.012 Total Protein 8.1 7.0 # Albumin 4.8 4.1 Globulin 3.30 H 2.90 Albumin/Globulin Ratio 1.45 1.41 Lipase 73 Hemoglobin A1c 5.7 Magnesium Level 2.4 Triglycerides Level 98 Cholesterol Level 131 LDL Cholesterol, Calculated 61 HDL Cholesterol 50 Cholesterol/HDL Ratio 2.6 Subjective 24 Hr Interval Summary Free Text/Dictation Patient doing well, no further chest pain or chest discomfort. Stress test is negative after rule out was completed for ACS overnight. Symptoms likely to be secondary to GI, PUD versus GERD. 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: 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 MACHINE OPERATOR II-XII intact, nl mental status, nl speech, nl strength Medications Medications Current Medications IV Flush (NS 3 ml) 3 ml PER PROTOCOL IV ; Start 07/10/18 at 17:30 Ondansetron HCl (Zofran Inj) 4 mg Q6H PRN IV NAUSEA AND/OR VOMITING; Start 07/10/18 at 17:30 Nitroglycerin (Nitroglycerin (Sl Tab) 0.4 Mg) 1 tab Q5M PRN SL CHEST PAIN; Start 07/10/18 at 17:30 Acetaminophen (Tylenol Tab) 650 mg Q6H PRN PO PAIN LEVEL 1-3 OR FEVER; Start 07/10/18 at 17:30 Morphine Sulfate (morphine) 2 mg Q4H PRN IV PAIN LEVEL 7-10; Start 07/10/18 at 17:30 Docusate Sodium (Colace) 100 mg Q12H PRN PO CONSTIPATION; Start 07/10/18 at 17:30 Magnesium Hydroxide (Milk Of Mag) 30 ml DAILY PRN PO CONSTIPATION; Start 07/10/18 at 17:30 Bisacodyl (Dulcolax Supp) 10 mg DAILY PRN [place] CONSTIPATION; Start 07/10/18 at 17:30 Famotidine (Pepcid) 20 mg Q12 PO Last administered on 07/11/18at 11:48; Admin Dose 20 MG; Start 07/10/18 at 21:00 Aspirin (Halfprin) 81 mg DAILY PO Last administered on 07/11/18at 11:48; Admin Dose 81 MG; Start 07/11/18 at 09:00 Atorvastatin Calcium (Lipitor) 80 mg QHS PO ; Start 07/10/18 at 21:00 Carvedilol (Coreg) 3.125 mg BID PO Last administered on 07/11/18at 11:49; Admin Dose 3.125 MG; Start 07/10/18 at 21:00 Clopidogrel Bisulfate (plaVIX) 75 mg DAILY PO Last administered on 07/11/18at 11:48; Admin Dose 75 MG; Start 07/11/18 at 09:00 Lisinopril (Zestril) 5 mg DAILY PO Last administered on 07/11/18at 11:49; Admin Dose 5 MG; Start 07/11/18 at 09:00 Imaging Imaging PROCEDURE: Lexiscan myocardial perfusion study CLINICAL INDICATION: 48 -year-old patient complaining of chest pain. TECHNIQUE: Lexiscan 0.4 mg intravenously separate acquisition gated myocardial perfusion SPECT using Tc 99m Myoview 29.5 mCi intravenously at stress and Tc-99m Myoview, 9.5 mCi intravenously at rest was performed using the rest/stress sequence. Poststress Myoview SPECT images were obtained in the supine position. COMPARISON: No prior studies. FINDINGS: Perfusion images reveal mild nonreversible perfusion abnormality in the inferior wall, which favor soft tissue attenuation. Lexiscan post stress gated SPECT images demonstrate no wall motion abnormalities. IMPRESSION: 1. No evidence of stress-induced ischemia. 2. No wall motion abnormalities. 3. The left ventricle ejection fraction at stress is 66%. A call report was made to Dr. Lay at 12:42 p.m. on July 11, 2018. RPTAT: HH .Cathy Wu MD, Date Time Electronically viewed and signed by .Cathy Wu MD, on 07/11/2018 12:43 KULDEEP DAMON Jul 11, 2018 13:13
[2018-07-11] MEDS ORDERED: FAMO20TA18 PO (13:14)
--- NOTE | 2018-07-11 13:14 | PDOCDIS ---
Discharge Instructions CONDITION [id number] Patient Condition: [id number] Stable HOME CARE INSTRUCTIONS: [id number] Diet Instructions: [id number] Low Fat /Cholesterol ACTIVITY: [id number] Activity Restrictions: [id number] Slowly Increase Activity FOLLOW UP/APPOINTMENTS Follow-up Plan Follow-up with primary care physician within 1 week Follow-up with outpatient cardiology within 2 weeks or as previously scheduled if so. SCHOOL/WORK RELEASE May return to School/Work on: Jul 14, 2018 KULDEEP DAMON Jul 11, 2018 13:14
--- NOTE | 2018-07-11 17:14 | DS ---
Date/Time of Note Date/Time of Note DATE: 07/11/18 TIME: 17:10 Discharge Summary Admission/Discharge Info Admit Date/Time Jul 10, 2018 at 16:21 Discharge Date/Time Jul 11, 2018 at 14:55 Discharge Diagnosis 1. Atypical chest pain 2. Epigastric burning pain with occasional stabbing pain, but this could be consistent with GERD versus PUD. 3. Coronary artery disease. 4. Hypertension. 5. Hyperlipidemia. 6. GERD. Patient Condition: Stable Consults Cardiology, Dr Lay Procedures Lexiscan stress test negative Hx of Present Illness Chief complaint: Epigastric pain, chest pain History of presenting illness: This is a 48-year-old male with coronary artery disease, status post RCA stenting in December 2017 after episode of NSTEMI at [facility] who presented to the emergency department with complaint of epigastric pain that now has progressed to left-sided chest pain. Patient reports that he is been in his usual state of health until this morning, he was at work here at [employer] when he started having burning epigastric pain and sharp at times, he thought he was gas and or GERD, he took Pepcid which is listed as his medication, the pain was not resolving and he started having also mild dull-like pain on his left chest radiating to his left back. Patient reports that he actually went up and down the stairs to see if his pain was not worsened and it did not, he did feel some dizziness and mild shortness of breath but no diaphoresis, no nausea or vomiting. Since the dull achy left-sided chest pain was persisting and he reports that was very similar to the pain he had when he had his acute coronary syndrome in December, he decided to come to the emergency department for evaluation. EKG is within normal, first set of cardiac enzymes negative, patient is hemodynamically stable. He is being admitted to telemetry on observation with possible stress test in a.m. if cardiac enzymes remain negative. There is a possibility that his current symptoms are of gastrointestinal etiology, ultrasound of the upper abdomen is ordered. Patient is placed on H2 blockers twice daily. Hospital Course Patient remained stable overnight, 2D echocardiogram with stable ejection fraction, he was ruled out for acute coronary syndrome. He was maintained on Pepcid twice daily. Lexiscan stress test was done this morning, was negative, patient was discharged home with his cardiac medications and also advised to increase his outpatient Pepcid dosing to 20 mg p.o. twice daily. He needs to follow-up with primary care physician within 1 week and his outpatient electrical contacts adjuster as scheduled. Home Meds Active Scripts Famotidine* (Famotidine*) 20 Mg Tablet, 20 MG PO Q12 for 30 Days, TAB 3 Refills Prov:KULDEEP DAMON 07/11/18 Reported Medications Aspirin* (Aspirin* EC) 81 Mg Tablet.dr, 81 MG PO DAILY, TAB 07/10/18 Clopidogrel Bisulfate* (Clopidogrel Bisulfate*) 75 Mg Tablet, 75 MG PO DAILY, #30 TAB 07/10/18 Carvedilol* (Carvedilol*) 3.125 Mg Tablet, 3.125 MG PO BID, #60 TAB 07/10/18 Atorvastatin* (Atorvastatin*) 80 Mg Tablet, 80 MG PO QHS, #30 TAB 07/10/18 Lisinopril* (Lisinopril*) 5 Mg Tablet, 5 MG PO DAILY, #30 TAB 07/10/18 Discontinued Reported Medications Famotidine* (Famotidine*) 10 Mg Tablet, 10 MG PO BID, #60 TAB 07/10/18 Alprazolam* (Xanax*) 0.5 Mg Tab, 0.5 MG PO PRN 12/11/11 Albuterol Sulfate* (Proair HFA*) 8.5 Gm Hfa.aer.ad, 8.5 GM IH PRN 12/11/11 Follow-up Plan Follow-up with primary care physician within 1 week Follow-up with outpatient cardiology within 2 weeks or as previously scheduled if so. Primary Care Provider Clari Montes MD Time spent on discharge: > 30 minutes Pending Labs Laboratory Tests Test 07/10/18 21:56 07/11/18 03:20 Creatine Kinase 130 IU/L (23-200) 164 IU/L (23-200) Creatine Kinase Index 0.6 0.5 Creatinine Kinase MB 0.82 ng/ml (0.0-2.4) 0.74 ng/ml (0.0-2.4) (Mass) Troponin I < 0.012 < 0.012 ng/ml (0.000-0.120) ng/ml (0.000-0.120) White Blood Count 4.9 10^3/ul (4.8-10.8) Red Blood Count 4.51 10^6/ul (4.70-6.10) Hemoglobin 13.7 g/dl (14.0-18.0) Hematocrit 40.5 % (42.0-52.0) Mean Corpuscular Volume 89.8 fl (82.0-101.0) Mean Corpuscular 30.4 pg (29.0-33.0) Hemoglobin Mean Corpuscular 33.8 g/dl (32.0-37.0) Hemoglobin Concent Red Cell Distribution 12.4 % (11.5-14.5) Width Platelet Count 199 10^3/UL (140-415) Mean Platelet Volume 9.0 fl (7.4-10.4) Immature Granulocytes % 0.400 % (0.001-0.429) Neutrophils % 54.8 % (39.0-77.0) Lymphocytes % 31.6 % (15.0-51.0) Monocytes % 10.3 % (0.0-11.0) Eosinophils % 2.1 % (0.0-7.0) Basophils % 0.8 % (0.0-2.0) Nucleated Red Blood Cells 0.0 /100WBC (0.0-0.0) % Immature Granulocytes # 0.020 10^3/ul (0.0-0.031) Neutrophils # 2.7 10^3/ul (1.6-7.5) Lymphocytes # 1.5 10^3/ul (0.8-2.9) Monocytes # 0.5 10^3/ul (0.3-0.9) Eosinophils # 0.1 10^3/ul (0.0-0.5) Basophils # 0.0 10^3/ul (0.0-0.1) Nucleated Red Blood Cells 0.0 10^3/ul (0.0-0.0) # Sodium Level 139 mmol/L (135-144) Potassium Level 4.2 mmol/L (3.5-5.1) Chloride Level 100 mmol/L (97-110) Carbon Dioxide Level 31 mmol/L (21-31) Anion Gap 8 (5-13) Blood Urea Nitrogen 23 mg/dl (7-20) Creatinine 1.25 mg/dl (0.61-1.24) Est Glomerular Filtrat > 60 mL/min (>60) Rate mL/min Glucose Level 100 mg/dl (70-220) Hemoglobin A1c 5.7 % (0-5.9) Calcium Level 9.2 mg/dl (8.4-10.2) Magnesium Level 2.4 mg/dl (1.7-2.5) Total Bilirubin 0.2 mg/dl (0.2-1.3) Direct Bilirubin 0.00 mg/dl (0.00-0.20) Indirect Bilirubin 0.2 mg/dl (0-1.1) Aspartate Amino 34 IU/L (15-46) Transf (AST/SGOT) Alanine 53 IU/L (13-69) Aminotransferase (ALT/SGPT ) Alkaline Phosphatase 41 IU/L (42-121) Total Protein 7.0 g/dl (6.1-8.1) Albumin 4.1 g/dl (3.3-4.9) Globulin 2.90 g/dl (1.3-3.2) Albumin/Globulin Ratio 1.41 Triglycerides Level 98 mg/dl (0-149) Cholesterol Level 131 mg/dl (100-200) LDL Cholesterol, 61 mg/dl Calculated HDL Cholesterol 50 mg/dl (27-67) Cholesterol/HDL Ratio 2.6 RATIO KULDEEP DAMON Jul 11, 2018 17:14
== END 2018-07-11 14:55 | disposition home or self-care (01) ==
LOC: E/R 14:38 → 6WM 16:21
PROVIDERS: ADMIT Internal Medicine; ATTEND Internal Medicine
DX: R07.89 Other chest pain (principal); R10.13 Epigastric pain; I25.10 Atherosclerotic heart disease of native coronary artery without angina pectoris; I10 Essential (primary) hypertension; E78.5 Hyperlipidemia, unspecified; E78.00 Pure hypercholesterolemia, unspecified; Z95.5 Presence of coronary angioplasty implant and graft; J45.909 Unspecified asthma, uncomplicated; K21.9 Gastro-esophageal reflux disease without esophagitis; Z79.82 Long term (current) use of aspirin
CPT/HCPCS: 36415; 71045; 76700; 78452; 80053; 80061; 82550; 82553; 83036; 83690; 83735; 84484; 85025; 85610; 85730; 93005; 93017; 93306; 96374; 96375; 99285; A9500; A9505; G0378; J1885; J2405; J2785; J7040

== ENCOUNTER 2018-11-28 06:27 | Emergency (ER) | payer BC ==
[~2018-11-28] VITALS: Wt 70.5 kg
[~2018-11-28 06:27] MED LIST changes: -ALBU8.5H8 IH; -ALPR0.5T PO; +ASPI-817 PO; +ATOR-2 PO; +CARV3.1260 PO; +CLOP75TA19 PO; +FAMO20TA18 PO; +LISI-313 PO
--- NOTE | 2018-11-28 07:38 | ERD ---
ER Documentation Chief Complaint Chief Complaint DIZZINESS/WEAKNESS/SOB X 2 DAYS HPI 48-year-old male presents to the emergency department complaining of abdominal pain, chest pain and shortness of breath. Patient was in his usual state of health until the last 3 days at which time the epigastric pain that has been diagnosed as previous peptic ulcer disease/gastritis got worse. He began having more severe epigastric pain that then radiated to his chest and his back. This was associated with significant shortness of breath and a sensation of generalized weakness in both arms and legs. This got worse today and became more severe and he came to the emergency department for evaluation. His symptoms she states are similar to symptoms he has had in the past after his stent. ROS All systems reviewed and are negative except as per history of present illness. Medications Home Meds Active Scripts Famotidine* (Famotidine*) 20 Mg Tablet, 20 MG PO Q12 for 30 Days, TAB 3 Refills Prov:KULDEEP DAMON F 07/11/18 Reported Medications Aspirin* (Aspirin* EC) 81 Mg Tablet.dr, 81 MG PO DAILY, TAB 07/10/18 Clopidogrel Bisulfate* (Clopidogrel Bisulfate*) 75 Mg Tablet, 75 MG PO DAILY, #30 TAB 07/10/18 Carvedilol* (Carvedilol*) 3.125 Mg Tablet, 3.125 MG PO BID, #60 TAB 07/10/18 Atorvastatin* (Atorvastatin*) 80 Mg Tablet, 80 MG PO QHS, #30 TAB 07/10/18 Lisinopril* (Lisinopril*) 5 Mg Tablet, 5 MG PO DAILY, #30 TAB 07/10/18 Allergies Allergies: Coded Allergies: shrimp (Verified Allergy, Severe, 07/10/18) Penicillins (Verified Allergy, Unknown, 07/10/18) PMhx/Soc History of Surgery: Yes (STENT DECEMBER 2017) Anesthesia Reaction: No Hx Neurological Disorder: No Hx Respiratory Disorders: Yes (ASTHMA) Hx Cardiac Disorders: Yes (HTN) Hx Psychiatric Problems: No Hx Miscellaneous Medical Probl: No Hx Alcohol Use: Yes (OCCASIONAL) Hx Substance Use: No Hx Tobacco Use: No Smoking Status: Never smoker FmHx Noncontributory for chief complaint Physical Exam Vitals Vital Signs Date Temp Pulse Resp B/P (MAP) Pulse Ox O2 O2 Flow FiO2 Time Delivery Rate 11/28/18 97.9 78 18 151/99 99 06:28 (116) Physical Exam GENERAL: The patient is well developed and appropriate for usual state of health in no apparent distress HEENT: Pupils equal, round, and reactive to light. EOMI. There is no scleral icterus. NECK: C-spine is soft and supple, there is no meningismus. There is no cervical lymphadenopathy. LUNGS: Clear to auscultation bilaterally. There are no rales, wheezes or rhonchi. HEART: Regular rate and rhythm, no murmurs, clicks, rubs or gallops. ABDOMEN: Soft, non-tender, non-distended. There are bowel sounds in all four quadrants. No rebound or guarding. EXTREMITIES: There is no peripheral cyanosis or edema. No focal swelling or erythema. NEURO: The patient moves all four extremities with 5/5 strength. Cranial nerves II - XII are intact. Normal gait. Alert and oriented SKIN: There is no apparent rash or petechiae. HEME/LYMPHATIC: There is no evidence of excessive bruising or lymphedema. PSYCHIATRIC: The patient does not appear anxious or depressed. Result Diagram: 11/28/18 0645 11/28/18 0645 Results 24 hrs Laboratory Tests Test 11/28/18 06:45 White Blood Count 5.0 10^3/ul Red Blood Count 5.02 10^6/ul Hemoglobin 14.9 g/dl Hematocrit 42.8 % Mean Corpuscular Volume 85.3 fl Mean Corpuscular Hemoglobin 29.7 pg Mean Corpuscular Hemoglobin Concent 34.8 g/dl Red Cell Distribution Width 12.5 % Platelet Count 209 10^3/UL Mean Platelet Volume 8.7 fl Immature Granulocytes % 0.400 % Neutrophils % 61.2 % Lymphocytes % 27.1 % Monocytes % 8.5 % Eosinophils % 2.2 % Basophils % 0.6 % Nucleated Red Blood Cells % 0.0 /100WBC Immature Granulocytes # 0.020 10^3/ul Neutrophils # 3.0 10^3/ul Lymphocytes # 1.3 10^3/ul Monocytes # 0.4 10^3/ul Eosinophils # 0.1 10^3/ul Basophils # 0.0 10^3/ul Nucleated Red Blood Cells # 0.0 10^3/ul Sodium Level 142 mmol/L Potassium Level 3.9 mmol/L Chloride Level 104 mmol/L Carbon Dioxide Level 27 mmol/L Anion Gap 11 Blood Urea Nitrogen 21 mg/dl Creatinine 1.08 mg/dl Est Glomerular Filtrat Rate mL/min > 60 mL/min Glucose Level 111 mg/dl Calcium Level 9.6 mg/dl Total Bilirubin 0.6 mg/dl Direct Bilirubin 0.00 mg/dl Indirect Bilirubin 0.6 mg/dl Aspartate Amino Transf (AST/SGOT) 39 IU/L Alanine Aminotransferase (ALT/SGPT) 58 IU/L Alkaline Phosphatase 57 IU/L Troponin I < 0.012 ng/ml Total Protein 8.2 g/dl Albumin 4.7 g/dl Globulin 3.50 g/dl Albumin/Globulin Ratio 1.34 Lipase 80 U/L Procedures/MDM Patient was taken to a room, seen and evaluated. Comfort measures were initiated. Diagnostic tests were ordered and reviewed. 3 LEAD RHYTHM STRIP: Normal sinus rhythm without ectopy EK lead EKG reviewed by myself: Normal Sinus Rhythm Normal [place] and intervals No ST elevation, depression, or T wave inversion. Nonspecific ST and T wave changes mostly noted about the inferior leads Impression: Nonspecific EKG EKG was repeated and interpreted by myself: 12 lead EKG reviewed by myself: Normal Sinus Rhythm Normal [place] and intervals No ST elevation, depression, or T wave inversion. Nonspecific ST and T wave changes mostly noted about the inferior leads Impression: Nonspecific EKG without significant interval change RADIOLOGY: Reviewed with the radiologist CONSULTATION: Hospitalist was notified for admission REEVALUATION: 0735: Diagnostic tests were appreciated and discussed with the patient. Decision was made to admit for observation. MEDICAL DECISION MAKIN-year-old male presents the emergency department with nonspecific epigastric, chest pain as well as shortness of breath. His symptoms are concerning as they feel similar to what he had in the past with his heart disease. Initial diagnostic tests seem to be reassuring including his EKGs and troponins. Review of his records indicates that he had had a Lexiscan in June that was also reassuring. At this time, patient appears to be stable, but given his ongoing symptoms, he will require further observation for serial troponins to rule out acute coronary syndrome. I have also ordered a CT angiogram of the chest to evaluate for pulmonary embolism given the recurrence of the symptoms. Departure Diagnosis: Primary Impression: Chest pain Condition: ARGENTINA Oropeza Nov 28, 2018 07:38
[2018-11-28] MEDS ORDERED: IOHEXOL 100 ML ONE (07:45)
[2018-11-28] MEDS ORDERED: SOD CHLORIDE 0.9% 100 ML ONE (07:45)
[2018-11-28] MEDS ORDERED: ALBU8.5H8 INH (08:01)
[2018-11-28] MEDS ORDERED: PANT40TA3 PO (08:01)
[2018-11-28 11:00] VITALS: BP 114/74; PULSE 73; RESP 16
== END 2018-11-28 11:00 | disposition home or self-care (01) ==
LOC: E/R 06:27
DX: R07.9 Chest pain, unspecified (principal); J45.909 Unspecified asthma, uncomplicated; I10 Essential (primary) hypertension; R40.2142 Coma scale, eyes open, spontaneous, at arrival to emergency department; R40.2362 Coma scale, best motor response, obeys commands, at arrival to emergency department; R40.2252 Coma scale, best verbal response, oriented, at arrival to emergency department; Z79.82 Long term (current) use of aspirin; Z79.01 Long term (current) use of anticoagulants
CPT/HCPCS: 36415; 71045; 71275; 80053; 83690; 84484; 85025; 93005; 99285; Q9967